=== PATIENT | male | born 1950 | race Hispanic/Latino ===

== ENCOUNTER 2019-12-07 17:48 | Inpatient (IN) | payer OTHER ==
[~2019-12-07] VITALS: Ht 160 cm; Wt 71.8 kg
[2019-12-07 18:03] LABS: BASOPHILS % (AUTO) 0.2 % (0.0-5.0); HEMATOCRIT 41.2 % (42-54); LYMPHOCYTES % (AUTO) 7.9 % (21.0-51.0); MEAN CORPUSCULAR HEMOGLOBIN 30.9 pg (27.0-33.0); MEAN CORPUSCULAR HGB CONC 35.4 g/dL (32.0-36.0); MEAN CORPUSCULAR VOLUME 87.3 fL (79-99); MONOCYTES % (AUTO) 10.7 % (3.0-13.0); NEUTROPHILS % (AUTO) 80.1 % (40.0-77.0); PLATELET COUNT (AUTO) 249 K/uL (130-400); RED BLOOD CELL COUNT(AUTO) 4.72 MIL/uL (4.50-6.20); RED CELL DISTRIBUTION WIDTH 13.4 % (11.0-15.5); WHITE BLOOD COUNT (AUTO) 9.7 K/uL (4.8-10.8)
[2019-12-07 18:03] LABS: ABG HCO3 18.3 mmol/L (21.0-28.0); ABG OXYGEN SATURATION 80.1 % (95.0-99.0); ABG PCO2 24 mmHg (35-48)
[2019-12-07 18:23] LABS: INR 0.92 (0.85-1.15); PARTIAL THROMBOPLASTIN TIME 29.6 SEC (26.3-35.5)
[2019-12-07] MEDS ORDERED: ACETAMINOPHEN EXTRA STRENGTH 500 MG TABLET ONE (18:24)
[2019-12-07 19:24] LABS: ALBUMIN 3.4 g/dL (3.5-5.0); BILIRUBIN,TOTAL 1.3 mg/dL (0.2-1.0); CREATININE 1.5 mg/dL (0.5-1.5); POTASSIUM 4.8 mmol/L (3.5-5.1); TOTAL PROTEIN, SERUM 8.2 g/dL (6.0-8.3)
[2019-12-07 19:28] LABS: TROPONIN I 1.5 ng/mL (0.00-0.06)
[2019-12-07] MEDS ORDERED: GUAIFENESIN-DM 200/20 MG 10 ML PO PRN (20:00)
[2019-12-07] MEDS: CEFTRIAXONE SODIUM 1 GM IVP SCH (20:00)
[2019-12-07] MEDS ORDERED: ONDANSETRON HCL 4 MG/2 ML VIAL IV PRN (20:00)
[2019-12-07] MEDS ORDERED: ACETAMINOPHEN 325 MG TAB PO PRN ×2 (20:00)
[2019-12-07] MEDS ORDERED: DOXYCYCLINE 100MG+NS 250ML IV SCH (20:00)
[2019-12-07] MEDS: ENOXAPARIN SODIUM 80 MG/0.8 ML SQ SCH (21:00)
[2019-12-07] MEDS ORDERED: DOXYCYCLINE HYCLATE 100 MG TABLET PO SCH (21:00)
[2019-12-07] MEDS ORDERED: DEXTROSE 50%-WATER 50 ML DISP.SYRIN IV PRN (21:15)
[2019-12-07] MEDS ORDERED: ERGOCALCIFEROL (VITAMIN D2) 50,000 UNIT CAPSULE PO ONE (21:15)
[2019-12-07] MEDS ORDERED: ASPIRIN 325MG EC TAB 325 MG TABLET.DR PO SCH (21:15)
[2019-12-07] MEDS ORDERED: GLUCAGON 1MG KIT 1 MG ML IM PRN (21:15)
[2019-12-07] MEDS ORDERED: METHYLPREDNISOLONE SOD SUCC 125MG/2ML VIAL IVP ONE (21:30)
[2019-12-07] MEDS ORDERED: ENOXAPARIN SODIUM 80 MG/0.8 ML SQ ONE (23:37)
[2019-12-07] MEDS ORDERED: ASPIRIN 325 MG TABLET ONE (23:38)
[2019-12-07] MEDS ORDERED: ERGOCALCIFEROL (VITAMIN D2) 50,000 UNIT CAPSULE ONE (23:38)
[2019-12-07] MEDS ORDERED: ASCORBIC ACID 500 MG TAB ONE (23:38)
[2019-12-07] MEDS ORDERED: ZINC SULFATE 220 CAPSULE ONE (23:38)
[2019-12-07] MEDS ORDERED: METHYLPREDNISOLONE SOD SUCC 125MG/2ML VIAL ONE (23:39)
[2019-12-07] MEDS ORDERED: CEFTRIAXONE SODIUM 1 GM ONE (23:39)
[2019-12-07] MEDS ORDERED: AZITHROMYCIN 500MG+NS 250ML 250 ML IV ONE (23:39)
[2019-12-07] MEDS ORDERED: DOXYCYCLINE 100MG+NS 250ML 250 ML IV ONE (23:44)
[2019-12-08] MEDS ORDERED: FAMOTIDINE/PF 20 MG/2 ML VIAL IV ONE ×2 (00:18→08:46)
[2019-12-08] MEDS ORDERED: ACETAMINOPHEN EXTRA STRENGTH 500 MG TABLET ONE (01:23)
[2019-12-08] MEDS ORDERED: ERGOCALCIFEROL (VITAMIN D2) 50,000 UNIT CAPSULE ONE (01:23)
[2019-12-08 03:29] LABS: TROPONIN I 4.03 ng/mL (0.00-0.06)
[2019-12-08 07:11] LABS: BASOPHILS % (AUTO) 0.2 % (0.0-5.0); HEMATOCRIT 37.3 % (42-54); LYMPHOCYTES % (AUTO) 6.2 % (21.0-51.0); MEAN CORPUSCULAR HGB CONC 35.1 g/dL (32.0-36.0); MEAN CORPUSCULAR VOLUME 88.2 fL (79-99); MONOCYTES % (AUTO) 4.1 % (3.0-13.0); NEUTROPHILS % (AUTO) 88.3 % (40.0-77.0); PLATELET COUNT (AUTO) 242 K/uL (130-400); RED BLOOD CELL COUNT(AUTO) 4.23 MIL/uL (4.50-6.20); RED CELL DISTRIBUTION WIDTH 13.6 % (11.0-15.5)
[2019-12-08] MEDS: INSULIN HUMULIN R 100 UNIT/ML 3ML SQ SCH ×4 (07:30→21:00)
[2019-12-08] MEDS: INSULIN GLARGINE 100 UNITS/ML 10 ML VIAL SQ SCH ×2 (07:30→21:00)
[2019-12-08 07:36] LABS: ALBUMIN 3.1 g/dL (3.5-5.0); BILIRUBIN,TOTAL 0.9 mg/dL (0.2-1.0); CREATININE 1.2 mg/dL (0.5-1.5); CRP QUANTITATIVE 114.7 mg/L (0.00-9.0); POTASSIUM 4.3 mmol/L (3.5-5.1); TOTAL PROTEIN, SERUM 7.3 g/dL (6.0-8.3)
[2019-12-08 07:40] LABS: TROPONIN I 4.54 ng/mL (0.00-0.06)
[2019-12-08] MEDS: CEFTRIAXONE SODIUM 1 GM IVP SCH ×2 (08:00→20:00)
[2019-12-08] MEDS ORDERED: ENOXAPARIN SODIUM 80 MG/0.8 ML SQ ONE ×2 (08:45→20:45)
[2019-12-08] MEDS ORDERED: ZINC SULFATE 220 CAPSULE ONE (08:45)
[2019-12-08] MEDS ORDERED: ASCORBIC ACID 500 MG TAB ONE (08:45)
[2019-12-08] MEDS ORDERED: ASPIRIN 81MG TAB.CHEW ONE ×2 (08:45→10:32)
[2019-12-08] MEDS ORDERED: CEFTRIAXONE SODIUM 1 GM ONE ×2 (08:46→20:46)
[2019-12-08] MEDS: ASCORBIC ACID 500 MG TAB PO SCH (09:00)
[2019-12-08] MEDS: METHYLPREDNISOLONE SOD SUCC 40MG/ML 1ML IVP SCH ×3 (09:00→21:00)
[2019-12-08] MEDS: FAMOTIDINE/PF 20 MG/2 ML VIAL IV SCH (09:00)
[2019-12-08] MEDS: ASPIRIN 81MG TAB.CHEW PO SCH (09:00)
[2019-12-08] MEDS ORDERED: ASPIRIN 81MG TAB.CHEW PO SCH (09:00)
[2019-12-08] MEDS: ENOXAPARIN SODIUM 80 MG/0.8 ML SQ SCH ×2 (09:00→21:00)
[2019-12-08] MEDS ORDERED: INSULIN HUMULIN R 100 UNIT/ML 3ML ONE ×3 (10:20→20:48)
[2019-12-08] MEDS ORDERED: METHYLPREDNISOLONE SOD SUCC 40MG/ML 1ML ONE ×2 (11:46→15:21)
[2019-12-08] MEDS ORDERED: DOXYCYCLINE HYCLATE 100 MG TABLET PO ONE (11:46)
[2019-12-08] MEDS: ZINC SULFATE 220 CAPSULE PO SCH (12:00)
--- NOTE | 2019-12-08 13:07 | NUR ---
SPOKE TO SPOUSE ON THE PHONE FOR DC PLANNING, STATES PATIENT IS ACTIVE, INDEPENDENT, NO DME, AND NO PCP, HAS A NEW PATIENT APPOINTMENT WITH DR. ROSA MONCADA MIRIAM, DC IS HOME NO ANSWERWIFE STATES UNABLE TO CALL PATIENT ON HIS PHONE [phone] CM CALL TO ER [phone] Addendum: 12/08/19 at 1313 by WILD SAN RN CM Amended: Links added.
[2019-12-08] MEDS ORDERED: METOPROLOL TARTRATE 50 MG TAB ONE ×2 (16:10→20:46)
[2019-12-08] MEDS ORDERED: FUROSEMIDE 10 MG/ML 4ML VIAL IV SCH (16:30)
[2019-12-08] MEDS ORDERED: FUROSEMIDE 10 MG/ML 4ML VIAL ONE (17:32)
[2019-12-08] MEDS: METHYLPREDNISOLONE SOD SUCC 125MG/2ML VIAL IVP SCH (18:00)
[2019-12-08 18:55] LABS: APPEARANCE,URINE Clear (CLEAR); BILIRUBIN,URINE Negative (NEGATIVE); COLOR,URINE Yellow (YELLOW); GLUCOSE, URINE (UA) TRACE mg/dL (NEGATIVE); KETONES,URINE Negative (NEGATIVE); LEUKOCYTE ESTERASE ,URINE Negative (NEGATIVE); NITRATE,URINE Negative (NEGATIVE); OCCULT BLOOD,URINE Negative (NEGATIVE); PROTEIN,URINE POS 1+ mg/dL (NEGATIVE)
[2019-12-08 19:04] LABS: BACTERIA,URINE Rare /HPF (None Seen); RBC,URINE 0-1 /HPF (0-1); SQUAMOUS EPITHELIAL CELL,UR Few /HPF (0-2); WBC,URINE 0-1 /HPF (0-1)
[2019-12-09 05:36] LABS: BASOPHILS % (AUTO) 0.1 % (0.0-5.0); HEMATOCRIT 35.7 % (42-54); MEAN CORPUSCULAR HEMOGLOBIN 30.9 pg (27.0-33.0); MEAN CORPUSCULAR VOLUME 88.1 fL (79-99); MONOCYTES % (AUTO) 6.4 % (3.0-13.0); NEUTROPHILS % (AUTO) 87.2 % (40.0-77.0); PLATELET COUNT (AUTO) 301 K/uL (130-400); RED BLOOD CELL COUNT(AUTO) 4.05 MIL/uL (4.50-6.20); RED CELL DISTRIBUTION WIDTH 13.5 % (11.0-15.5); WHITE BLOOD COUNT (AUTO) 15.1 K/uL (4.8-10.8)
[2019-12-09 05:52] LABS: ALBUMIN 2.8 g/dL (3.5-5.0)
[2019-12-09 05:54] LABS: BILIRUBIN,TOTAL 0.8 mg/dL (0.2-1.0); CREATININE 1.2 mg/dL (0.5-1.5); CRP QUANTITATIVE 78.6 mg/L (0.00-9.0); POTASSIUM 3.9 mmol/L (3.5-5.1); TOTAL PROTEIN, SERUM 7.1 g/dL (6.0-8.3)
[2019-12-09] MEDS: METHYLPREDNISOLONE SOD SUCC 125MG/2ML VIAL IVP SCH ×4 (06:00→18:00)
[2019-12-09] MEDS: INSULIN HUMULIN R 100 UNIT/ML 3ML SQ SCH ×4 (07:30→21:00)
[2019-12-09] MEDS: INSULIN GLARGINE 100 UNITS/ML 10 ML VIAL SQ SCH ×2 (07:30→21:00)
[2019-12-09] MEDS ORDERED: ENOXAPARIN SODIUM 80 MG/0.8 ML SQ ONE ×2 (07:53→21:18)
[2019-12-09] MEDS ORDERED: ASPIRIN 81MG TAB.CHEW ONE (07:54)
[2019-12-09] MEDS ORDERED: ASCORBIC ACID 500 MG TAB ONE (07:54)
[2019-12-09] MEDS ORDERED: METHYLPREDNISOLONE SOD SUCC 40MG/ML 1ML ONE (07:54)
[2019-12-09] MEDS ORDERED: ZINC SULFATE 220 CAPSULE ONE (07:54)
[2019-12-09] MEDS ORDERED: METOPROLOL TARTRATE 50 MG TAB ONE (07:55)
[2019-12-09] MEDS ORDERED: CEFTRIAXONE SODIUM 1 GM ONE ×2 (07:55→21:25)
[2019-12-09] MEDS ORDERED: FAMOTIDINE/PF 20 MG/2 ML VIAL IV ONE (07:56)
[2019-12-09] MEDS: CEFTRIAXONE SODIUM 1 GM IVP SCH ×2 (08:00→20:00)
[2019-12-09] MEDS: ASPIRIN 81MG TAB.CHEW PO SCH (09:00)
[2019-12-09] MEDS: ENOXAPARIN SODIUM 80 MG/0.8 ML SQ SCH ×2 (09:00→21:00)
[2019-12-09] MEDS: METHYLPREDNISOLONE SOD SUCC 40MG/ML 1ML IVP SCH ×3 (09:00→21:00)
[2019-12-09] MEDS: FAMOTIDINE/PF 20 MG/2 ML VIAL IV SCH (09:00)
[2019-12-09] MEDS: ASCORBIC ACID 500 MG TAB PO SCH (09:00)
[2019-12-09] MEDS ORDERED: FUROSEMIDE 10 MG/ML 4ML VIAL IV SCH (09:30)
[2019-12-09] MEDS: ZINC SULFATE 220 CAPSULE PO SCH (12:00)
[2019-12-09] MEDS ORDERED: FUROSEMIDE 10 MG/ML 4ML VIAL ONE (13:03)
[2019-12-09] MEDS ORDERED: INSULIN HUMULIN R 100 UNIT/ML 3ML ONE ×2 (15:09→17:46)
[2019-12-09 19:35] LABS: BASOPHILS % (AUTO) 0.1 % (0.0-5.0); HEMATOCRIT 34.3 % (42-54); LYMPHOCYTES % (AUTO) 3.4 % (21.0-51.0); MEAN CORPUSCULAR HEMOGLOBIN 31.1 pg (27.0-33.0); MEAN CORPUSCULAR HGB CONC 35.3 g/dL (32.0-36.0); MEAN CORPUSCULAR VOLUME 88.2 fL (79-99); MONOCYTES % (AUTO) 4.6 % (3.0-13.0); NEUTROPHILS % (AUTO) 90.8 % (40.0-77.0); NUCLEATED RED BLOOD CELLS 0.1 % (0.0-0.19); PLATELET COUNT (AUTO) 329 K/uL (130-400); RED BLOOD CELL COUNT(AUTO) 3.89 MIL/uL (4.50-6.20); RED CELL DISTRIBUTION WIDTH 13.6 % (11.0-15.5); WHITE BLOOD COUNT (AUTO) 14.8 K/uL (4.8-10.8)
[2019-12-09] MEDS: FUROSEMIDE 10 MG/ML 2ML VIAL IV SCH (20:00)
[2019-12-09] MEDS ORDERED: DOXYCYCLINE 100MG+NS 250ML 250 ML IV ONE (20:35)
[2019-12-09] MEDS ORDERED: FUROSEMIDE 10 MG/ML 2ML VIAL ONE (21:19)
[2019-12-09] MEDS ORDERED: METHYLPREDNISOLONE SOD SUCC 125MG/2ML VIAL ONE (21:19)
[2019-12-10 01:25] VITALS: BP 157/84
[2019-12-10] MEDS: METHYLPREDNISOLONE SOD SUCC 125MG/2ML VIAL IVP SCH ×4 (01:29→17:41)
[2019-12-10 03:34] VITALS: BP 154/76
[2019-12-10] MEDS: FUROSEMIDE 10 MG/ML 2ML VIAL IV SCH ×3 (04:59→22:10)
[2019-12-10] MEDS: INSULIN HUMULIN R 100 UNIT/ML 3ML SQ SCH ×4 (05:53→22:09)
[2019-12-10] MEDS: INSULIN GLARGINE 100 UNITS/ML 10 ML VIAL SQ SCH ×2 (05:54→22:09)
[2019-12-10 08:00] VITALS: BP 148/78
[2019-12-10 08:07] LABS: BASOPHILS % (AUTO) 0.1 % (0.0-5.0); HEMATOCRIT 33.5 % (42-54); LYMPHOCYTES % (AUTO) 4.7 % (21.0-51.0); MEAN CORPUSCULAR HEMOGLOBIN 30.6 pg (27.0-33.0); MEAN CORPUSCULAR HGB CONC 34.6 g/dL (32.0-36.0); MEAN CORPUSCULAR VOLUME 88.4 fL (79-99); MONOCYTES % (AUTO) 4.3 % (3.0-13.0); NEUTROPHILS % (AUTO) 89.4 % (40.0-77.0); NUCLEATED RED BLOOD CELLS 0.1 % (0.0-0.19); PLATELET COUNT (AUTO) 327 K/uL (130-400); RED BLOOD CELL COUNT(AUTO) 3.79 MIL/uL (4.50-6.20); RED CELL DISTRIBUTION WIDTH 13.5 % (11.0-15.5); WHITE BLOOD COUNT (AUTO) 13.6 K/uL (4.8-10.8)
[2019-12-10 08:29] LABS: ALBUMIN 2.8 g/dL (3.5-5.0); BILIRUBIN,TOTAL 0.9 mg/dL (0.2-1.0); CREATININE 1.3 mg/dL (0.5-1.5); CRP QUANTITATIVE 34.6 mg/L (0.00-9.0); POTASSIUM 3.7 mmol/L (3.5-5.1); TOTAL PROTEIN, SERUM 6.7 g/dL (6.0-8.3)
[2019-12-10] MEDS ORDERED: FUROSEMIDE 10 MG/ML 4ML VIAL IV SCH (09:45)
[2019-12-10] MEDS ORDERED: PHARMACY COMMUNICATION MISC SCH (10:15)
[2019-12-10] MEDS ORDERED: FAMOTIDINE 20MG TAB 20 MG TAB ONE (10:56)
[2019-12-10] MEDS: ENOXAPARIN SODIUM 80 MG/0.8 ML SQ SCH ×2 (11:13→22:11)
[2019-12-10] MEDS: FAMOTIDINE 20MG TAB 20 MG TAB PO SCH ×2 (11:14→22:10)
[2019-12-10] MEDS: ASPIRIN 81MG TAB.CHEW PO SCH (11:17)
[2019-12-10] MEDS: CEFTRIAXONE SODIUM 1 GM IVP SCH ×2 (11:17→22:11)
[2019-12-10] MEDS: ZINC SULFATE 220 CAPSULE PO SCH (11:17)
[2019-12-10] MEDS: ASCORBIC ACID 500 MG TAB PO SCH (11:17)
[2019-12-10] MEDS: METOPROLOL TARTRATE 25 MG TAB PO SCH ×2 (11:18→22:12)
[2019-12-10 13:32] VITALS: BP 145/79
[2019-12-10] MEDS ORDERED: REMDESIVIR (INVESTIGATIONAL) 200 MG/250 ML NS IV SCH (14:00)
[2019-12-10 18:18] VITALS: BP 157/76
[2019-12-10 20:32] VITALS: BP 149/74
[2019-12-11] MEDS: METHYLPREDNISOLONE SOD SUCC 125MG/2ML VIAL IVP SCH ×4 (00:06→17:51)
[2019-12-11 00:32] VITALS: BP 139/69
[2019-12-11] MEDS ORDERED: TEMAZEPAM 7.5 MG CAPSULE PO ONE ×2 (01:00→01:06)
[2019-12-11 04:32] VITALS: BP 133/72
[2019-12-11] MEDS: FUROSEMIDE 10 MG/ML 2ML VIAL IV SCH ×3 (04:52→21:16)
[2019-12-11 05:54] LABS: BASOPHILS % (AUTO) 0.2 % (0.0-5.0); LYMPHOCYTES % (AUTO) 5.1 % (21.0-51.0); MEAN CORPUSCULAR HEMOGLOBIN 30.4 pg (27.0-33.0); MEAN CORPUSCULAR HGB CONC 34.1 g/dL (32.0-36.0); MONOCYTES % (AUTO) 5.1 % (3.0-13.0); NEUTROPHILS % (AUTO) 88.2 % (40.0-77.0); PLATELET COUNT (AUTO) 364 K/uL (130-400); RED BLOOD CELL COUNT(AUTO) 3.82 MIL/uL (4.50-6.20); RED CELL DISTRIBUTION WIDTH 13.5 % (11.0-15.5)
[2019-12-11] MEDS: INSULIN HUMULIN R 100 UNIT/ML 3ML SQ SCH ×4 (06:32→21:00)
[2019-12-11] MEDS: INSULIN GLARGINE 100 UNITS/ML 10 ML VIAL SQ SCH ×2 (06:33→21:14)
[2019-12-11 06:42] LABS: ALBUMIN 2.7 g/dL (3.5-5.0); BILIRUBIN,TOTAL 0.8 mg/dL (0.2-1.0); CREATININE 1.2 mg/dL (0.5-1.5); CRP QUANTITATIVE 19.9 mg/L (0.00-9.0); POTASSIUM 3.5 mmol/L (3.5-5.1); TOTAL PROTEIN, SERUM 6.7 g/dL (6.0-8.3)
[2019-12-11] MEDS: CEFTRIAXONE SODIUM 1 GM IVP SCH ×2 (08:37→21:16)
[2019-12-11] MEDS: FAMOTIDINE 20MG TAB 20 MG TAB PO SCH ×2 (08:38→21:16)
[2019-12-11] MEDS: ASCORBIC ACID 500 MG TAB PO SCH (08:38)
[2019-12-11] MEDS: METOPROLOL TARTRATE 25 MG TAB PO SCH ×2 (08:38→21:16)
[2019-12-11] MEDS: ASPIRIN 81MG TAB.CHEW PO SCH (08:38)
[2019-12-11] MEDS: ENOXAPARIN SODIUM 80 MG/0.8 ML SQ SCH ×2 (08:41→21:18)
[2019-12-11] MEDS: ZINC SULFATE 220 CAPSULE PO SCH (08:42)
[2019-12-11 09:37] VITALS: BP 147/82
[2019-12-11] MEDS ORDERED: REMDESIVIR (INVESTIGATIONAL) 100 MG in SODIUM CHLORIDE 0.9% 250 ML IV SCH (09:45)
[2019-12-11 13:43] VITALS: BP 15/92
[2019-12-11] MEDS: REMDESIVIR (INVESTIGATIONAL) 100 MG/250ML NS IV SCH (14:06)
[2019-12-11] MEDS ORDERED: COMPOUND IV REFRIGERATED 1 EACH IVSOLN MISC PRN (14:15)
[2019-12-11 18:19] VITALS: BP 151/60
[2019-12-11 20:00] VITALS: BP 147/80
[2019-12-12] VITALS: BP 144/79
[2019-12-12] MEDS: METHYLPREDNISOLONE SOD SUCC 125MG/2ML VIAL IVP SCH ×5 (00:23→23:36)
[2019-12-12 04:00] VITALS: BP 153/89
[2019-12-12] MEDS: FUROSEMIDE 10 MG/ML 2ML VIAL IV SCH ×3 (04:00→21:28)
[2019-12-12] MEDS: INSULIN GLARGINE 100 UNITS/ML 10 ML VIAL SQ SCH ×2 (06:08→21:22)
[2019-12-12] MEDS: INSULIN HUMULIN R 100 UNIT/ML 3ML SQ SCH ×4 (06:08→21:23)
[2019-12-12 06:44] LABS: BASOPHILS % (AUTO) 0.2 % (0.0-5.0); MEAN CORPUSCULAR HGB CONC 33.5 g/dL (32.0-36.0); MEAN CORPUSCULAR VOLUME 89.6 fL (79-99); MONOCYTES % (AUTO) 5.9 % (3.0-13.0); NEUTROPHILS % (AUTO) 88.1 % (40.0-77.0); PLATELET COUNT (AUTO) 393 K/uL (130-400); RED BLOOD CELL COUNT(AUTO) 4.13 MIL/uL (4.50-6.20); RED CELL DISTRIBUTION WIDTH 13.3 % (11.0-15.5); WHITE BLOOD COUNT (AUTO) 16.4 K/uL (4.8-10.8)
[2019-12-12 07:24] LABS: ALBUMIN 2.7 g/dL (3.5-5.0); CRP QUANTITATIVE 19.9 mg/L (0.00-9.0); POTASSIUM 3.1 mmol/L (3.5-5.1); TOTAL PROTEIN, SERUM 6.6 g/dL (6.0-8.3)
[2019-12-12] MEDS: CEFTRIAXONE SODIUM 1 GM IVP SCH ×2 (08:03→21:26)
[2019-12-12] MEDS: ASCORBIC ACID 500 MG TAB PO SCH (08:36)
[2019-12-12] MEDS: ASPIRIN 81MG TAB.CHEW PO SCH (08:36)
[2019-12-12] MEDS: METOPROLOL TARTRATE 25 MG TAB PO SCH ×2 (08:37→21:27)
[2019-12-12] MEDS: ENOXAPARIN SODIUM 80 MG/0.8 ML SQ SCH ×2 (08:37→21:28)
[2019-12-12] MEDS: FAMOTIDINE 20MG TAB 20 MG TAB PO SCH ×2 (09:00→21:00)
--- NOTE | 2019-12-12 09:45 | NUR ---
DR. ANGEL SPOKE TO VIA TELEPHONE. STATES NO INTERVENTIONS BY CARDIOLOGY AT THIS TIME, MD IS SIGNING OFF OF CASE.
[2019-12-12 10:15] VITALS: BP 137/80
[2019-12-12 12:00] VITALS: BP 159/73
[2019-12-12] MEDS: ZINC SULFATE 220 CAPSULE PO SCH (12:13)
[2019-12-12] MEDS: REMDESIVIR (INVESTIGATIONAL) 100 MG/250ML NS IV SCH (14:07)
[2019-12-12 19:01] VITALS: BP 166/90
[2019-12-12 20:00] VITALS: BP 159/91
[2019-12-13 00:18] VITALS: BP 160/89
[2019-12-13 03:23] VITALS: BP 141/81
[2019-12-13] MEDS: INSULIN HUMULIN R 100 UNIT/ML 3ML SQ SCH ×4 (06:05→20:32)
[2019-12-13] MEDS: INSULIN GLARGINE 100 UNITS/ML 10 ML VIAL SQ SCH ×2 (06:06→20:32)
[2019-12-13 06:27] LABS: BASOPHILS % (AUTO) 0.2 % (0.0-5.0); HEMATOCRIT 37.9 % (42-54); LYMPHOCYTES % (AUTO) 2.8 % (21.0-51.0); MEAN CORPUSCULAR HEMOGLOBIN 30.8 pg (27.0-33.0); MEAN CORPUSCULAR HGB CONC 34.6 g/dL (32.0-36.0); MONOCYTES % (AUTO) 5.3 % (3.0-13.0); NEUTROPHILS % (AUTO) 89.9 % (40.0-77.0); PLATELET COUNT (AUTO) 400 K/uL (130-400); RED BLOOD CELL COUNT(AUTO) 4.26 MIL/uL (4.50-6.20); RED CELL DISTRIBUTION WIDTH 13.2 % (11.0-15.5); WHITE BLOOD COUNT (AUTO) 14.5 K/uL (4.8-10.8)
[2019-12-13 06:55] LABS: ALBUMIN 2.5 g/dL (3.5-5.0); CRP QUANTITATIVE 24.7 mg/L (0.00-9.0); POTASSIUM 3.1 mmol/L (3.5-5.1); TOTAL PROTEIN, SERUM 6.9 g/dL (6.0-8.3)
[2019-12-13 08:36] VITALS: BP 141/79
[2019-12-13] MEDS: CEFTRIAXONE SODIUM 1 GM IVP SCH ×2 (08:41→20:29)
[2019-12-13] MEDS: METHYLPREDNISOLONE SOD SUCC 125MG/2ML VIAL IVP SCH ×2 (08:41→17:14)
[2019-12-13] MEDS: ASCORBIC ACID 500 MG TAB PO SCH (08:42)
[2019-12-13] MEDS: FUROSEMIDE 10 MG/ML 2ML VIAL IV SCH ×2 (08:42→20:30)
[2019-12-13] MEDS: ASPIRIN 81MG TAB.CHEW PO SCH (08:42)
[2019-12-13] MEDS: ENOXAPARIN SODIUM 80 MG/0.8 ML SQ SCH ×2 (08:43→20:33)
[2019-12-13] MEDS: METOPROLOL TARTRATE 25 MG TAB PO SCH ×2 (08:43→20:30)
[2019-12-13] MEDS: FAMOTIDINE 20MG TAB 20 MG TAB PO SCH ×2 (09:00→20:28)
[2019-12-13 11:10] VITALS: BP 160/86
[2019-12-13] MEDS: ZINC SULFATE 220 CAPSULE PO SCH (15:10)
[2019-12-13] MEDS: REMDESIVIR (INVESTIGATIONAL) 100 MG/250ML NS IV SCH (15:47)
[2019-12-13] MEDS ORDERED: POTASSIUM CHLORIDE 20MEQ/100ML 100 ML IV PRN ×2 (16:45)
[2019-12-13] MEDS ORDERED: POTASSIUM CHLORIDE 10% ELIXIR 20 MEQ/15 ML UDCUP PO PRN (16:45)
[2019-12-13 16:55] VITALS: BP 148/86
[2019-12-13 19:30] VITALS: BP 150/81
[2019-12-13] MEDS: POTASSIUM CHLORIDE 20 MEQ ERTAB PO PRN (20:40)
[2019-12-14] VITALS: BP 138/97
[2019-12-14] MEDS: METHYLPREDNISOLONE SOD SUCC 125MG/2ML VIAL IVP SCH ×4 (01:08→23:53)
[2019-12-14 04:00] VITALS: BP 147/77
[2019-12-14 05:32] LABS: BASOPHILS % (AUTO) 0.2 % (0.0-5.0); HEMATOCRIT 39.5 % (42-54); LYMPHOCYTES % (AUTO) 1.1 % (21.0-51.0); MEAN CORPUSCULAR HEMOGLOBIN 30.5 pg (27.0-33.0); MEAN CORPUSCULAR HGB CONC 34.2 g/dL (32.0-36.0); MEAN CORPUSCULAR VOLUME 89.2 fL (79-99); MONOCYTES % (AUTO) 3.2 % (3.0-13.0); NEUTROPHILS % (AUTO) 93.8 % (40.0-77.0); PLATELET COUNT (AUTO) 419 K/uL (130-400); RED BLOOD CELL COUNT(AUTO) 4.43 MIL/uL (4.50-6.20); RED CELL DISTRIBUTION WIDTH 13.2 % (11.0-15.5); WHITE BLOOD COUNT (AUTO) 15.1 K/uL (4.8-10.8)
[2019-12-14] MEDS: INSULIN HUMULIN R 100 UNIT/ML 3ML SQ SCH ×4 (05:50→21:22)
[2019-12-14] MEDS: INSULIN GLARGINE 100 UNITS/ML 10 ML VIAL SQ SCH ×2 (05:51→21:22)
[2019-12-14 06:01] LABS: ALBUMIN 2.5 g/dL (3.5-5.0); BILIRUBIN,TOTAL 1.4 mg/dL (0.2-1.0); CREATININE 0.9 mg/dL (0.5-1.5); CRP QUANTITATIVE 28.1 mg/L (0.00-9.0)
[2019-12-14] MEDS: POTASSIUM CHLORIDE 20 MEQ ERTAB PO PRN ×3 (06:03→14:29)
[2019-12-14 08:00] VITALS: BP 146/77
[2019-12-14] MEDS: FAMOTIDINE 20MG TAB 20 MG TAB PO SCH ×2 (09:00→20:41)
[2019-12-14] MEDS: ASCORBIC ACID 500 MG TAB PO SCH (09:00)
[2019-12-14] MEDS: CEFTRIAXONE SODIUM 1 GM IVP SCH (09:05)
[2019-12-14] MEDS ORDERED: LIDOCAINE HCL-MPF 1% 2ML VIAL IV PRN (09:45)
[2019-12-14] MEDS: ASPIRIN 81MG TAB.CHEW PO SCH (09:45)
[2019-12-14] MEDS: FUROSEMIDE 10 MG/ML 2ML VIAL IV SCH (09:45)
[2019-12-14] MEDS: ENOXAPARIN SODIUM 80 MG/0.8 ML SQ SCH ×2 (09:46→20:42)
[2019-12-14] MEDS: METOPROLOL TARTRATE 25 MG TAB PO SCH ×2 (09:46→20:41)
[2019-12-14 11:00] VITALS: BP 145/72
[2019-12-14] MEDS: REMDESIVIR (INVESTIGATIONAL) 100 MG/250ML NS IV SCH (14:29)
--- NOTE | 2019-12-14 16:00 | NUR ---
PATIENT SOB AND LOW O2 SAT PATIENT REPORTS FEELING SHORT OF BREATH. O2 SAT RANGING 82-88% WHILE ON NONREBREATHER MASK AT 100%. REPOSITIONED PATIENT WITH HEAD OF BED ELEVATED AND PATIENT REPORTS TROUBLE BREATHING. O2 SAT MAINTAINING IN 80'S RANGE WITH NONREBREATHER MASK AT 100%. CALLED DR. SOLORIO TO REPORT PATIENT SYMPTOMS, NOT TOLERATING PRONE POSITIONING, AND LOW OXYGEN SAT READINGS. MD ORDERED TO PLACE PATIENT ON HIFLOW O2 PER NASAL CANNULA.
--- NOTE | 2019-12-14 16:10 | NUR ---
IMPROVEMENT IN SYMPTOMS REPOSITIONED PATIENT ON RIGHT SIDE, HOB ELEVATED. NONREBREATHER MASK AT 100%, O2 SAT 90-92%. PATIENT REPORTS FEELING A LITTLE BETTER. RESPIRATORY THERAPIST RUTH INFORMED ME THAT THERE ARE NO HIGH FLOW O2 CANNULAS AVAILABLE IN HOSPITAL AT THIS TIME. PATIENT 02 SAT SLIGHTLY IMPROVING TO 93-94% AFTER 10 MINUTES OF REPOSITIONING ON RIGHT SIDE. CALLED DR. SOLORIO TO REPORT NO HIGH FLOW O2 CANNULAS ARE AVAILABLE BUT PATIENT EXPERIENCING IMPROVEMENT IN SYMPTOMS WITH CURRENT INTERVENTIONS. DR. SOLORIO REPLIED TO MAINTAIN CURRENT OXYGENATION AND CONTINUE TO ENCOURAGE PRONE POSITIONING WHEN PATIENT IS ABLE.
[2019-12-14] MEDS: ZINC SULFATE 220 CAPSULE PO SCH (17:34)
[2019-12-14 22:17] VITALS: BP 157/80
[2019-12-15 00:01] VITALS: BP 153/86
[2019-12-15] MEDS: INSULIN HUMULIN R 100 UNIT/ML 3ML SQ SCH ×4 (05:26→20:22)
[2019-12-15] MEDS: INSULIN GLARGINE 100 UNITS/ML 10 ML VIAL SQ SCH ×2 (05:27→20:23)
[2019-12-15 05:45] VITALS: BP 159/76
[2019-12-15 06:28] LABS: BASOPHILS % (AUTO) 0.2 % (0.0-5.0); HEMATOCRIT 40.1 % (42-54); LYMPHOCYTES % (AUTO) 1.7 % (21.0-51.0); MEAN CORPUSCULAR HEMOGLOBIN 30.8 pg (27.0-33.0); MEAN CORPUSCULAR HGB CONC 33.4 g/dL (32.0-36.0); MEAN CORPUSCULAR VOLUME 92.2 fL (79-99); MONOCYTES % (AUTO) 4.6 % (3.0-13.0); NEUTROPHILS % (AUTO) 91.9 % (40.0-77.0); PLATELET COUNT (AUTO) 436 K/uL (130-400); RED BLOOD CELL COUNT(AUTO) 4.35 MIL/uL (4.50-6.20); RED CELL DISTRIBUTION WIDTH 13.1 % (11.0-15.5); WHITE BLOOD COUNT (AUTO) 11.9 K/uL (4.8-10.8)
[2019-12-15 06:48] LABS: ALANINE AMINOTRANSFERASE 26 U/L (12-78); ALBUMIN 2.4 g/dL (3.5-5.0); ASPARTATE AMINOTRANSFERASE 36 U/L (10-37); BILIRUBIN,TOTAL 1.6 mg/dL (0.2-1.0); CARBON DIOXIDE 32 mmol/L (21-32); CHLORIDE 101 mmol/L (101-111); CREATININE 0.9 mg/dL (0.5-1.5); GLOMERULAR FILTR. RATE CALC 89 mL/min (>60); GLUCOSE,RANDOM 210 mg/dL (70-105); LACTATE DEHYDROGENASE 772 U/L (81-234); POTASSIUM 3.6 mmol/L (3.5-5.1); SODIUM SERUM 139 mmol/L (136-145); TOTAL PROTEIN, SERUM 6.7 g/dL (6.0-8.3); UREA NITROGEN, BLOOD 41 mg/dL (7-18)
--- NOTE | 2019-12-15 08:00 | NUR ---
PT SLEEPING NOTED HIS 100 % NRB , PARTIAL OFF, NOTED O2 Sat NOTED AT 50% RR OF 18, REPOSITION , HOB UP PLACED BACK HIS MASK OVER HISS FACE ,WITH SOME DEEP BREATH . O2 SAT COMING UP TO 92% REVIEW EDUCATION ON HIS RESP EQUIP AND MASK . OFF CL LIQ CALL LIGHT I N REACH.. PT CLOSE TO NURSE,S STATION, REVIEW CALL LIGHT AGAIN CALL LIGHT .
[2019-12-15 08:45] VITALS: BP 154/65
[2019-12-15] MEDS: METOPROLOL TARTRATE 25 MG TAB PO SCH ×2 (08:55→20:22)
[2019-12-15] MEDS: ASCORBIC ACID 500 MG TAB PO SCH (08:56)
[2019-12-15] MEDS: ASPIRIN 81MG TAB.CHEW PO SCH (08:56)
[2019-12-15] MEDS: METHYLPREDNISOLONE SOD SUCC 125MG/2ML VIAL IVP SCH ×3 (08:56→20:23)
[2019-12-15] MEDS: ENOXAPARIN SODIUM 80 MG/0.8 ML SQ SCH ×2 (08:57→20:23)
[2019-12-15] MEDS: FAMOTIDINE 20MG TAB 20 MG TAB PO SCH ×2 (08:57→20:22)
[2019-12-15 11:00] VITALS: BP 143/69
[2019-12-15] MEDS: ZINC SULFATE 220 CAPSULE PO SCH (12:27)
--- NOTE | 2019-12-15 13:30 | NUR ---
DR. CAROLYNN BAZAN HERE UPDATE OF PT .SOB AND O2SAT THIS AM. REPOSITION TO HIS RT SIDE, PT IS NOT ABLE TO SUPPORT PRONE POSITION . AT THIS TIME, HOB UP CONT .ON 100% NRB . CALL LIGHT IN REACH..
[2019-12-15 16:00] VITALS: BP 141/81
--- NOTE | 2019-12-15 18:30 | NUR ---
CALLED BLOOD BANK FOR THE THAWING OF THE PLASMA
--- NOTE | 2019-12-15 18:50 | NUR ---
DR. OKEEFE HERE UPDATE OF PT RESP EVENT. AND PENDING ICU BED ,AND HIGH FLOW ALSO PER NC. PLUS 100% NRB TRY TO PLACE PT ON PRONE POSITION WITH HELP AND PT WAS NOT ABLE TO TOLERATE POSITION . PLACE ON HIS RIGHT SIDE, AND HOB UP UP O2 Sat of 88% DR. OKEEFE AWARE OF HIS STATUS,
--- NOTE | 2019-12-15 18:50 | NUR ---
RESP STAFF , AT THE BEDSIDE, DR. OKEEFE TO PLACE PT ON NC ALSO PLUS THE 100% NRB .
[2019-12-15 20:28] VITALS: BP 154/77
[2019-12-16 00:26] VITALS: BP 126/60
[2019-12-16 04:28] VITALS: BP 120/62
[2019-12-16 05:12] LABS: BASOPHILS % (AUTO) 0.2 % (0.0-5.0); LYMPHOCYTES % (AUTO) 1.5 % (21.0-51.0); MEAN CORPUSCULAR HEMOGLOBIN 30.3 pg (27.0-33.0); MEAN CORPUSCULAR HGB CONC 33.1 g/dL (32.0-36.0); MEAN CORPUSCULAR VOLUME 91.6 fL (79-99); MONOCYTES % (AUTO) 2.8 % (3.0-13.0); NEUTROPHILS % (AUTO) 94.1 % (40.0-77.0); PLATELET COUNT (AUTO) 316 K/uL (130-400); RED BLOOD CELL COUNT(AUTO) 3.93 MIL/uL (4.50-6.20); RED CELL DISTRIBUTION WIDTH 13.1 % (11.0-15.5); WHITE BLOOD COUNT (AUTO) 11.9 K/uL (4.8-10.8)
[2019-12-16 05:25] LABS: ALBUMIN 2.4 g/dL (3.5-5.0); BILIRUBIN,TOTAL 2.3 mg/dL (0.2-1.0); CREATININE 1.1 mg/dL (0.5-1.5); CRP QUANTITATIVE 65.9 mg/L (0.00-9.0); TOTAL PROTEIN, SERUM 6.4 g/dL (6.0-8.3)
[2019-12-16] MEDS: INSULIN GLARGINE 100 UNITS/ML 10 ML VIAL SQ SCH ×2 (06:16→21:33)
[2019-12-16] MEDS: INSULIN HUMULIN R 100 UNIT/ML 3ML SQ SCH ×4 (06:16→21:32)
[2019-12-16 08:00] VITALS: BP 148/76
[2019-12-16] MEDS: FAMOTIDINE 20MG TAB 20 MG TAB PO SCH ×2 (09:00→21:00)
[2019-12-16] MEDS: CEFEPIME HCL 2 GM VIAL IVP SCH ×2 (10:18→21:30)
[2019-12-16] MEDS: ENOXAPARIN SODIUM 80 MG/0.8 ML SQ SCH ×2 (10:19→21:31)
[2019-12-16] MEDS: METHYLPREDNISOLONE SOD SUCC 125MG/2ML VIAL IVP SCH ×2 (10:20→16:47)
[2019-12-16] MEDS: ASPIRIN 81MG TAB.CHEW PO SCH (10:21)
[2019-12-16] MEDS: METOPROLOL TARTRATE 25 MG TAB PO SCH ×2 (10:21→21:00)
[2019-12-16] MEDS: ASCORBIC ACID 500 MG TAB PO SCH (10:21)
[2019-12-16] MEDS: DOXYCYCLINE HYCLATE 100 MG TABLET PO SCH ×2 (10:22→21:31)
[2019-12-16 11:00] VITALS: BP 137/79
[2019-12-16] MEDS: ZINC SULFATE 220 CAPSULE PO SCH (11:30)
--- NOTE | 2019-12-16 12:04 | NUR ---
RDSCREEN - LOS X 9, CLEAR LIQUID DIET X 9 DAYS Pt positive for COVID-19. Clear Liquid diet order x 9 days. Increased malnutrition risk. Poor PO intake per RN, possible swallow difficulty. WBC 11.9, BG 245, LDH 707, T. bili 2.3, AST 45, Alb 2.4. S/p Plasma Tx. Recommend SEAMLESS TUBE ROLLER/Swallow Study evaluation Recommend Adv diet as tolerated to 60gm CCD, when medically feasible Recommend 60mL ProMod QD when medically feasible. RD to continue to monitor. Please notify as additional nutrition concerns arise. Thank you.
--- NOTE | 2019-12-16 13:15 | NUR ---
FAMILY NOTIFICATION AND UPDATE SPOKE TO MIRANDA BIANCHI. GIVEN PT STATUS UPDATE AND PLAN OF CARE . ALL QUESTIONS ANSWERED. GIVEN PASSWORD FOR CALLS
[2019-12-16 16:00] VITALS: BP 124/87
--- NOTE | 2019-12-16 16:08 | NUR ---
Family notification Addendum for 12/15/2019; spoke to Sammie Cazares and gave her an update regarding pt's condition. All questions were answered and concerns addressed. Verbalized understanding and was very appreciative of call.
[2019-12-16 22:57] VITALS: BP 151/80
[2019-12-17] MEDS: METHYLPREDNISOLONE SOD SUCC 125MG/2ML VIAL IVP SCH ×3 (00:37→17:16)
[2019-12-17 00:58] VITALS: BP 143/74
[2019-12-17] MEDS: INSULIN HUMULIN R 100 UNIT/ML 3ML SQ SCH ×4 (05:29→21:02)
[2019-12-17] MEDS: INSULIN GLARGINE 100 UNITS/ML 10 ML VIAL SQ SCH ×2 (05:30→21:04)
[2019-12-17 05:46] VITALS: BP 140/62
[2019-12-17 07:26] LABS: CRP QUANTITATIVE 79.8 mg/L (0.00-9.0); POTASSIUM 3.7 mmol/L (3.5-5.1)
[2019-12-17 08:00] VITALS: BP 151/70
[2019-12-17] MEDS: CEFEPIME HCL 2 GM VIAL IVP SCH ×2 (08:47→20:05)
[2019-12-17] MEDS: FAMOTIDINE 20MG TAB 20 MG TAB PO SCH ×2 (08:48→20:06)
[2019-12-17] MEDS: ASPIRIN 81MG TAB.CHEW PO SCH (08:48)
[2019-12-17] MEDS: ASCORBIC ACID 500 MG TAB PO SCH (08:48)
[2019-12-17] MEDS: METOPROLOL TARTRATE 25 MG TAB PO SCH ×2 (08:48→20:06)
[2019-12-17] MEDS: DOXYCYCLINE HYCLATE 100 MG TABLET PO SCH ×2 (08:49→20:05)
[2019-12-17] MEDS: ENOXAPARIN SODIUM 80 MG/0.8 ML SQ SCH ×2 (08:50→20:06)
[2019-12-17] MEDS: ZINC SULFATE 220 CAPSULE PO SCH (11:59)
[2019-12-17 12:00] VITALS: BP 150/83
[2019-12-17 15:30] VITALS: BP 171/89
[2019-12-17 21:37] VITALS: BP 147/68
[2019-12-18 01:53] VITALS: BP 155/72
[2019-12-18] MEDS: INSULIN HUMULIN R 100 UNIT/ML 3ML SQ SCH ×4 (05:38→20:29)
[2019-12-18] MEDS: INSULIN GLARGINE 100 UNITS/ML 10 ML VIAL SQ SCH ×2 (05:38→20:28)
[2019-12-18 06:24] VITALS: BP 156/76
[2019-12-18 06:33] LABS: CREATININE 1.1 mg/dL (0.5-1.5); POTASSIUM 3.3 mmol/L (3.5-5.1)
[2019-12-18] MEDS: CEFEPIME HCL 2 GM VIAL IVP SCH ×2 (07:49→18:59)
[2019-12-18] MEDS: DOXYCYCLINE HYCLATE 100 MG TABLET PO SCH ×2 (07:50→20:17)
[2019-12-18] MEDS: METHYLPREDNISOLONE SOD SUCC 125MG/2ML VIAL IVP SCH ×3 (07:50→16:35)
[2019-12-18] MEDS: ASPIRIN 81MG TAB.CHEW PO SCH (07:50)
[2019-12-18] MEDS: METOPROLOL TARTRATE 25 MG TAB PO SCH ×2 (07:51→20:17)
[2019-12-18] MEDS: ASCORBIC ACID 500 MG TAB PO SCH (07:51)
[2019-12-18] MEDS: FAMOTIDINE 20MG TAB 20 MG TAB PO SCH ×2 (07:51→20:17)
[2019-12-18] MEDS: ENOXAPARIN SODIUM 80 MG/0.8 ML SQ SCH (07:52)
[2019-12-18 08:00] VITALS: BP 152/89
[2019-12-18 11:00] VITALS: BP 137/88
[2019-12-18] MEDS: ZINC SULFATE 220 CAPSULE PO SCH (12:31)
--- NOTE | 2019-12-18 13:25 | NUR ---
RD FOLLOW UP Pt continues with Clear Liquid diet order X 11 days. No report of GI distress. Poor PO. WBC 11.9, BG 289, K 3.3. LBM 12/16. Vitamin C, Zinc supplementation in place. Recommend advance to Full Liquid diet order with Glucerna Nutrition supplement Recommend 60mL ProMod protein supplementation BID RD to continue to monitor. Please notify RD as additional nutrition concerns arise. Thank you.
[2019-12-18 15:28] VITALS: BP 144/76
[2019-12-18] MEDS: METHYLPREDNISOLONE SOD SUCC 40MG/ML 1ML IVP SCH (20:17)
[2019-12-18 21:09] VITALS: BP 144/85
[2019-12-19 00:31] VITALS: BP 144/79
[2019-12-19] MEDS: INSULIN HUMULIN R 100 UNIT/ML 3ML SQ SCH ×4 (05:34→21:00)
[2019-12-19] MEDS: INSULIN GLARGINE 100 UNITS/ML 10 ML VIAL SQ SCH ×2 (05:35→21:00)
[2019-12-19 05:38] LABS: BASOPHILS % (AUTO) 0.5 % (0.0-5.0); HEMATOCRIT 36.8 % (42-54); LYMPHOCYTES % (AUTO) 2.7 % (21.0-51.0); MEAN CORPUSCULAR HEMOGLOBIN 30.9 pg (27.0-33.0); MEAN CORPUSCULAR HGB CONC 33.2 g/dL (32.0-36.0); MEAN CORPUSCULAR VOLUME 93.2 fL (79-99); MONOCYTES % (AUTO) 4.8 % (3.0-13.0); NEUTROPHILS % (AUTO) 85.9 % (40.0-77.0); NUCLEATED RED BLOOD CELLS 0.4 % (0.0-0.19); PLATELET COUNT (AUTO) 288 K/uL (130-400); RED BLOOD CELL COUNT(AUTO) 3.95 MIL/uL (4.50-6.20); WHITE BLOOD COUNT (AUTO) 15.2 K/uL (4.8-10.8)
[2019-12-19 06:15] VITALS: BP 160/78
[2019-12-19 06:20] LABS: CREATININE 1.2 mg/dL (0.5-1.5); CRP QUANTITATIVE 24.5 mg/L (0.00-9.0); POTASSIUM 3.4 mmol/L (3.5-5.1)
[2019-12-19 08:30] VITALS: BP 160/74
[2019-12-19] MEDS: CEFEPIME HCL 2 GM VIAL IVP SCH ×2 (09:27→19:45)
[2019-12-19] MEDS: ASPIRIN 81MG TAB.CHEW PO SCH (09:27)
[2019-12-19] MEDS: FAMOTIDINE 20MG TAB 20 MG TAB PO SCH ×2 (09:27→21:00)
[2019-12-19] MEDS: ASCORBIC ACID 500 MG TAB PO SCH (09:27)
[2019-12-19] MEDS: METHYLPREDNISOLONE SOD SUCC 40MG/ML 1ML IVP SCH ×2 (09:27→21:00)
[2019-12-19] MEDS: ENOXAPARIN SODIUM 80 MG/0.8 ML SQ SCH (09:28)
[2019-12-19] MEDS: METOPROLOL TARTRATE 25 MG TAB PO SCH ×2 (09:28→21:00)
[2019-12-19] MEDS: DOXYCYCLINE HYCLATE 100 MG TABLET PO SCH ×2 (09:28→21:00)
[2019-12-19 11:00] VITALS: BP 162/79
[2019-12-19] MEDS: ZINC SULFATE 220 CAPSULE PO SCH (12:00)
--- NOTE | 2019-12-19 13:57 | NUR ---
DYSPHAGIA EVAL COMPLETED. +S/S OF ASPIRATION WITH THIN LIQUIDS. RECOMMEND FULL LIQUID DIET, NECTAR-THICK LIQUIDS. ASSEMBLY ROOM SUPERVISOR COORDINATED CARE WITH NURSE SIGIFREDO. SIGN PLACED ON THE DOOR WITH DIET RECOMMENDATIONS AND COMPENSATORY STRATEGIES. ALL QUESTIONS ANSWERED AT THE TIME OF THE EVALUATION. Addendum: 12/19/19 at 1400 by TERRY BEYER, [facility] Amended: Links added.
[2019-12-19 16:00] VITALS: BP 158/82
[2019-12-19 20:12] VITALS: BP 167/84
[2019-12-20 00:12] VITALS: BP 149/87
[2019-12-20 04:12] VITALS: BP 145/83
[2019-12-20] MEDS: INSULIN HUMULIN R 100 UNIT/ML 3ML SQ SCH ×4 (05:59→21:39)
[2019-12-20] MEDS: INSULIN GLARGINE 100 UNITS/ML 10 ML VIAL SQ SCH ×2 (06:00→21:39)
[2019-12-20 07:51] LABS: BASOPHILS % (AUTO) 0.6 % (0.0-5.0); HEMATOCRIT 38.3 % (42-54); LYMPHOCYTES % (AUTO) 2.3 % (21.0-51.0); MEAN CORPUSCULAR HEMOGLOBIN 30.5 pg (27.0-33.0); MEAN CORPUSCULAR HGB CONC 32.4 g/dL (32.0-36.0); MEAN CORPUSCULAR VOLUME 94.3 fL (79-99); MONOCYTES % (AUTO) 2.9 % (3.0-13.0); NEUTROPHILS % (AUTO) 89.5 % (40.0-77.0); NUCLEATED RED BLOOD CELLS 0.2 % (0.0-0.19); PLATELET COUNT (AUTO) 285 K/uL (130-400); RED BLOOD CELL COUNT(AUTO) 4.06 MIL/uL (4.50-6.20); RED CELL DISTRIBUTION WIDTH 13.2 % (11.0-15.5); WHITE BLOOD COUNT (AUTO) 19.6 K/uL (4.8-10.8)
[2019-12-20 08:00] VITALS: BP 137/78
[2019-12-20 08:33] LABS: CARBON DIOXIDE 32 mmol/L (21-32); CHLORIDE 111 mmol/L (101-111); CREATININE 0.9 mg/dL (0.5-1.5); GLOMERULAR FILTR. RATE CALC 89 mL/min (>60); GLUCOSE,RANDOM 132 mg/dL (70-105); POTASSIUM 3.6 mmol/L (3.5-5.1); SODIUM SERUM 147 mmol/L (136-145); UREA NITROGEN, BLOOD 52 mg/dL (7-18)
[2019-12-20] MEDS: FAMOTIDINE 20MG TAB 20 MG TAB PO SCH ×2 (09:08→21:14)
[2019-12-20] MEDS: ASCORBIC ACID 500 MG TAB PO SCH (09:08)
[2019-12-20] MEDS: METOPROLOL TARTRATE 25 MG TAB PO SCH ×2 (09:09→21:12)
[2019-12-20] MEDS: DOXYCYCLINE HYCLATE 100 MG TABLET PO SCH ×2 (09:09→21:12)
[2019-12-20] MEDS: ASPIRIN 81MG TAB.CHEW PO SCH (09:09)
[2019-12-20] MEDS: METHYLPREDNISOLONE SOD SUCC 40MG/ML 1ML IVP SCH ×2 (09:11→21:12)
[2019-12-20] MEDS: CEFEPIME HCL 2 GM VIAL IVP SCH ×2 (09:11→21:12)
[2019-12-20] MEDS: ENOXAPARIN SODIUM 80 MG/0.8 ML SQ SCH (09:12)
[2019-12-20 10:12] LABS: LACTATE DEHYDROGENASE 673 U/L (81-234)
[2019-12-20 12:00] VITALS: BP 152/76
[2019-12-20] MEDS: ZINC SULFATE 220 CAPSULE PO SCH (12:30)
[2019-12-20 16:00] VITALS: BP 164/86
[2019-12-20 20:12] VITALS: BP 160/87
[2019-12-21 00:12] VITALS: BP 162/83
[2019-12-21 04:12] VITALS: BP 148/80
[2019-12-21] MEDS: INSULIN HUMULIN R 100 UNIT/ML 3ML SQ SCH ×4 (06:11→21:30)
[2019-12-21] MEDS: INSULIN GLARGINE 100 UNITS/ML 10 ML VIAL SQ SCH ×2 (06:13→21:30)
[2019-12-21 07:56] LABS: BASOPHILS % (AUTO) 0.5 % (0.0-5.0); HEMATOCRIT 39.7 % (42-54); LYMPHOCYTES % (AUTO) 2.9 % (21.0-51.0); MEAN CORPUSCULAR HEMOGLOBIN 30.6 pg (27.0-33.0); MEAN CORPUSCULAR HGB CONC 32.2 g/dL (32.0-36.0); MONOCYTES % (AUTO) 2.9 % (3.0-13.0); NEUTROPHILS % (AUTO) 89.2 % (40.0-77.0); NUCLEATED RED BLOOD CELLS 0.1 % (0.0-0.19); PLATELET COUNT (AUTO) 251 K/uL (130-400); RED BLOOD CELL COUNT(AUTO) 4.18 MIL/uL (4.50-6.20); RED CELL DISTRIBUTION WIDTH 13.5 % (11.0-15.5); WHITE BLOOD COUNT (AUTO) 23.4 K/uL (4.8-10.8)
[2019-12-21 08:00] VITALS: BP 148/93
[2019-12-21 08:17] LABS: CARBON DIOXIDE 31 mmol/L (21-32); CHLORIDE 110 mmol/L (101-111); CREATININE 1.1 mg/dL (0.5-1.5); GLOMERULAR FILTR. RATE CALC 71 mL/min (>60); GLUCOSE,RANDOM 193 mg/dL (70-105); LACTATE DEHYDROGENASE 582 U/L (81-234); POTASSIUM 3.6 mmol/L (3.5-5.1); SODIUM SERUM 147 mmol/L (136-145); UREA NITROGEN, BLOOD 59 mg/dL (7-18)
[2019-12-21] MEDS: ZINC SULFATE 220 CAPSULE PO SCH (10:45)
[2019-12-21] MEDS: DOXYCYCLINE HYCLATE 100 MG TABLET PO SCH ×2 (10:45→21:29)
[2019-12-21] MEDS: ASCORBIC ACID 500 MG TAB PO SCH (10:46)
[2019-12-21] MEDS: FAMOTIDINE 20MG TAB 20 MG TAB PO SCH ×2 (10:48→21:29)
[2019-12-21] MEDS: ASPIRIN 81MG TAB.CHEW PO SCH (10:49)
[2019-12-21] MEDS: METHYLPREDNISOLONE SOD SUCC 40MG/ML 1ML IVP SCH ×2 (10:49→21:29)
[2019-12-21] MEDS: ENOXAPARIN SODIUM 80 MG/0.8 ML SQ SCH (10:51)
[2019-12-21] MEDS: METOPROLOL TARTRATE 25 MG TAB PO SCH ×2 (10:52→21:29)
[2019-12-21] MEDS: CEFEPIME HCL 2 GM VIAL IVP SCH ×2 (11:04→21:29)
[2019-12-21 12:00] VITALS: BP 170/101
[2019-12-21 15:47] LABS: ABG BASE EXCESS 2.2 mmol/L (-2.0-3.0); ABG OXYGEN SATURATION 94.7 % (95.0-99.0); ABG PCO2 38 mmHg (35-48)
[2019-12-21 16:00] VITALS: BP 158/90
[2019-12-21] MEDS ORDERED: MORPHINE SULFATE 2 MG/ML 1ML SYG IM PRN (18:30)
[2019-12-21] MEDS ORDERED: NITROGLYCERIN 0.4 MG SL TAB SL PRN ×2 (18:30→22:00)
[2019-12-21 19:00] VITALS: BP 152/94
[2019-12-21] MEDS ORDERED: MORPHINE SULFATE 2 MG/ML 1ML SYG IVP ONE ×2 (19:15→20:20)
--- NOTE | 2019-12-21 19:16 | NUR ---
Patient complaining of chest pain. Dr. Black notified and ordered STAT cardiac labs, EKG, nitrox3 and morphine if needed. One dose of Nitro SL and morphine 2mg given. Patient alert and does not appear to be in any distress. Oncoming RN notified of patient status. Will continue to monitor for any changes.
[2019-12-21 19:43] LABS: TROPONIN I 0.14 ng/mL (0.00-0.06)
--- NOTE | 2019-12-21 22:46 | NUR ---
Memo [facility]es De Oca was consulted at 2200 concerning the patient's status about elevated troponin & chest pain (prior to my shift). He is aware of the EKG result and elevated trop of 0.14. I was told to order cycle trop. with PRN morphine 2mg Q1hr & SL Nitro for pain control. I was only instructed to notify the MD if he becomes unstable. Dr. Gerardo will f/u with the patient first thing in the morning.
[2019-12-22] VITALS (7 sets, daily range): BP systolic 109–164; BP diastolic 64–102
[2019-12-22] MEDS: MORPHINE SULFATE 2 MG/ML 1ML SYG IVP PRN ×4 (02:50→16:01)
--- NOTE | 2019-12-22 02:50 | NUR ---
Patient complained of Chest Pain 03/13. Stat EKG done which was the same as the previous EKG that was taken at 7pm at the beginning of the shift in which the MD is already aware. Trop are currently trending (next one at 4am). Patient BP was 164/97 HR 101 & morphine was given for pain. He is stable right now & being closely monitored.
[2019-12-22 05:48] LABS: CARBON DIOXIDE 33 mmol/L (21-32); CHLORIDE 114 mmol/L (101-111); CREATININE 1.2 mg/dL (0.5-1.5); GLOMERULAR FILTR. RATE CALC 64 mL/min (>60); GLUCOSE,RANDOM 223 mg/dL (70-105); LACTATE DEHYDROGENASE 589 U/L (81-234); POTASSIUM 4.3 mmol/L (3.5-5.1); SODIUM SERUM 153 mmol/L (136-145); UREA NITROGEN, BLOOD 71 mg/dL (7-18)
[2019-12-22] MEDS: INSULIN HUMULIN R 100 UNIT/ML 3ML SQ SCH ×4 (06:27→20:46)
[2019-12-22] MEDS: INSULIN GLARGINE 100 UNITS/ML 10 ML VIAL SQ SCH ×2 (07:30→20:46)
[2019-12-22] MEDS: DEXTROSE 5%-WATER 1,000 ML IV SCH ×2 (08:30→19:48)
[2019-12-22] MEDS: ASPIRIN 81MG TAB.CHEW PO SCH (09:23)
[2019-12-22] MEDS: DOXYCYCLINE HYCLATE 100 MG TABLET PO SCH ×2 (09:23→19:47)
[2019-12-22] MEDS: ASCORBIC ACID 500 MG TAB PO SCH (09:23)
[2019-12-22] MEDS: METHYLPREDNISOLONE SOD SUCC 40MG/ML 1ML IVP SCH ×2 (09:23→21:21)
[2019-12-22] MEDS: FAMOTIDINE 20MG TAB 20 MG TAB PO SCH ×2 (09:24→19:48)
[2019-12-22] MEDS: ENOXAPARIN SODIUM 80 MG/0.8 ML SQ SCH (09:24)
[2019-12-22] MEDS: CEFEPIME HCL 2 GM VIAL IVP SCH ×2 (09:24→21:21)
[2019-12-22] MEDS: ZINC SULFATE 220 CAPSULE PO SCH (09:25)
[2019-12-22] MEDS: METOPROLOL TARTRATE 25 MG TAB PO SCH ×2 (09:35→19:48)
[2019-12-22] MEDS ORDERED: NITROGLYCERIN 0.2 MG/HR PATCH TD SCH (10:15)
[2019-12-22] MEDS: 1/2 NORMAL SALINE 1,000 ML IV SCH ×2 (13:15→19:48)
--- NOTE | 2019-12-22 14:38 | NUR ---
DYSPHAGIA RE-EVAL COMPLETED. +S/S OF ASPIRATION. RECOMMEND NPO, LONG-TERM ALTERNATE MEANS OF NUTRITION/HYDRATION. LONG-TERM ALTERNATE MEANS OF NUTRITION/HYDRATION RECOMMENDED SECONDARY TO HIGH RISK FOR ASPIRATION AND Pt WITH DESATURATION DURING EVALUATION. NG TUBE MAY OBSTRUCT NOSTRIL AND CONTRIBUTE TO CONTINUED O2 DESATURATION. STATE GAME PROTECTOR COORDINATED WITH NURSE ALEX. Addendum: 12/22/19 at 1445 by TERRY BEYER [facility] Amended: Links added.
[2019-12-22] MEDS ORDERED: IOHEXOL-350 75 ML VIAL IV ONE (14:55)
[2019-12-22 17:27] LABS: ABG BASE EXCESS -2.3 mmol/L (-2.0-3.0); ABG HCO3 23.8 mmol/L (21.0-28.0); ABG OXYGEN SATURATION 87.6 % (95.0-99.0); ABG PCO2 46 mmHg (35-48)
--- NOTE | 2019-12-22 18:12 | NUR ---
Pt placed on BIPAP machine after presenting symptoms of respiratory distress. Episode occurred after patient returned to room from CT (eval for possible PE. Dr. Black at bedside during rapid response. Family notified of change of condition.
--- NOTE | 2019-12-22 18:24 | NUR ---
DNR/DNI Code status discussed with family. Form completed by and weigh and charge worker, Savana. Family verbalized understanding.
[2019-12-22] MEDS ORDERED: METOPROLOL TARTRATE 1 MG/ML 5ML VIAL IV ONE (23:06)
[2019-12-22] MEDS ORDERED: METOPROLOL TARTRATE 1 MG/ML 5ML VIAL IV PRN (23:15)
[2019-12-23 00:14] VITALS: BP 115/75
--- NOTE | 2019-12-23 00:58 | NUR ---
MD CALLED The hospitalist was called and made aware of the patient compromised swallowing mechanisms & the PO meds still ordered for tonight. I was informed to chart against the meds due to the patient being NPO & make the PO doxycycline IV. Also, the vmware systems administrator was called because the pts HR is sustaining in the 150s-160s at rest. He ordered lopressor Q4hr PRN with parameters.
--- NOTE | 2019-12-23 01:06 | NUR ---
Family Member Visit The patient's arrived to the floor at the beginning of the shift to visit her . The house worker general was made aware of the situation & said that it was ok for the family member to stay with no time limitation. She was approved by the executive board.
[2019-12-23] MEDS: MORPHINE SULFATE 2 MG/ML 1ML SYG IVP PRN ×3 (03:32→11:16)
[2019-12-23 03:51] VITALS: BP 107/74
[2019-12-23] MEDS: INSULIN HUMULIN R 100 UNIT/ML 3ML SQ SCH ×6 (05:49→21:00)
[2019-12-23] MEDS: INSULIN GLARGINE 100 UNITS/ML 10 ML VIAL SQ SCH ×2 (05:50→21:00)
[2019-12-23 06:06] LABS: BASOPHILS % (AUTO) 0.3 % (0.0-5.0); HEMATOCRIT 37.6 % (42-54); LYMPHOCYTES % (AUTO) 2.3 % (21.0-51.0); MEAN CORPUSCULAR HEMOGLOBIN 31.4 pg (27.0-33.0); MEAN CORPUSCULAR HGB CONC 32.2 g/dL (32.0-36.0); MEAN CORPUSCULAR VOLUME 97.7 fL (79-99); MONOCYTES % (AUTO) 1.9 % (3.0-13.0); NEUTROPHILS % (AUTO) 93.5 % (40.0-77.0); NUCLEATED RED BLOOD CELLS 0.3 % (0.0-0.19); PLATELET COUNT (AUTO) 165 K/uL (130-400); RED BLOOD CELL COUNT(AUTO) 3.85 MIL/uL (4.50-6.20); RED CELL DISTRIBUTION WIDTH 14.6 % (11.0-15.5); WHITE BLOOD COUNT (AUTO) 27.4 K/uL (4.8-10.8)
[2019-12-23 06:22] LABS: CREATININE 2.3 mg/dL (0.5-1.5); CRP QUANTITATIVE 61.8 mg/L (0.00-9.0); POTASSIUM 5.2 mmol/L (3.5-5.1)
[2019-12-23] MEDS: FAMOTIDINE 20MG TAB 20 MG TAB PO SCH ×2 (07:47→21:00)
[2019-12-23] MEDS: ASCORBIC ACID 500 MG TAB PO SCH (07:47)
[2019-12-23] MEDS: 1/2 NORMAL SALINE 1,000 ML IV SCH ×2 (07:48→09:29)
[2019-12-23] MEDS: ZINC SULFATE 220 CAPSULE PO SCH (07:48)
[2019-12-23] MEDS: METOPROLOL TARTRATE 25 MG TAB PO SCH ×2 (07:48→21:00)
[2019-12-23] MEDS: ASPIRIN 81MG TAB.CHEW PO SCH (07:48)
[2019-12-23 08:00] VITALS: BP 122/78
[2019-12-23] MEDS: DOXYCYCLINE 100MG+NS 250ML 250 ML IV SCH ×2 (09:00→21:04)
[2019-12-23] MEDS: METHYLPREDNISOLONE SOD SUCC 40MG/ML 1ML IVP SCH ×2 (09:40→21:04)
[2019-12-23] MEDS: CEFEPIME HCL 2 GM VIAL IVP SCH ×2 (09:40→21:04)
[2019-12-23] MEDS: ENOXAPARIN SODIUM 80 MG/0.8 ML SQ SCH (09:40)
[2019-12-23 11:00] VITALS: BP 139/88
--- NOTE | 2019-12-23 11:20 | NUR ---
Referral to SS for Pallative/Hospice Care SW spoke with spouse on telephone. Spouse requesting assistance with obtaining Immigration letter for family to cross border. Spouse informed that process is Customs to contact dry house worker for verification of patient/condition. Spouse provided with House Superv tel #. SW spoke with spouse about hospice and educated on philosophy and services. Spouse stated that she did not want to discuss hospice at this time. SW will continue to follow and provide assistance with hospice if receptive.
[2019-12-23] MEDS ORDERED: HYDROMORPHONE HCL 2 MG/ML VIAL IVP PRN (11:30)
[2019-12-23] MEDS ORDERED: HYDROMORPHONE HCL 0.5 MG/0.5 ML ML ONE (11:31)
[2019-12-23] MEDS ORDERED: FUROSEMIDE 10 MG/ML 4ML VIAL IV SCH (12:00)
--- NOTE | 2019-12-23 15:02 | NUR ---
FOLLOW UP COMPLETED. Pt CURRENTLY ON BIPAP AND NPO. PLEASE NOTE Pt IS AT HIGH RISK FOR ASPIRATION. NO TREATMENT PROVIDED AT THIS TIME. [employer] [facility] [facility] [employer] WILL CONTINUE TO FOLLOW Pt. Addendum: 12/23/19 at 1504 by TERRY BEYER, [facility] Amended: Links added.
[2019-12-23] MEDS: DEXTROSE 5%-WATER 1,000 ML IV SCH (15:18)
[2019-12-23 15:30] VITALS: BP 109/75
--- NOTE | 2019-12-23 19:25 | NUR ---
NG tube placed on left nare (at 65cm) Patient tolerated well. director of individual giving assisted with placement. Surgical Aide consult placed for possible tube feeds.
[2019-12-23 20:00] VITALS: BP 123/72
[2019-12-24] MEDS ORDERED: VANCOMYCIN PROTOCOL PER PHARMACY IV SCH
--- NOTE | 2019-12-24 01:46 | NUR ---
Patient At the beginning of the shift, the patient Vitals were stable. He was no longer responding however. At 23:49 the sterilization technician informed the staff that the patient HR carter then went into V.Fib. At 23:50 the patient was reading asystole. The family was called immediately concerning the patient's status. The Kaye Cazares arrived a couple of minutes later to visit her & all her questions were answered.
== END 2019-12-23 23:57 | disposition expired | DRG 871 ==
LOC: EDH 17:48 → EDHIP 19:58 → 4CH 12-09 22:34
PROVIDERS: ADMIT Internal Medicine; ATTEND Internal Medicine
PROC: 30233K1 Transfusion of Nonautologous Frozen Plasma into Peripheral Vein, Percutaneous Approach (ICD-10-PCS; principal; 2019-12-15)
PROC: 5A09357 Assistance with Respiratory Ventilation, Less than 24 Consecutive Hours, Continuous Positive Airway Pressure (ICD-10-PCS; 2019-12-22)
DX: A41.89 Other specified sepsis (principal); U07.1 COVID-19; J96.01 Acute respiratory failure with hypoxia; I21.4 Non-ST elevation (NSTEMI) myocardial infarction; J12.89 Other viral pneumonia; I50.31 Acute diastolic (congestive) heart failure; E87.1 Hypo-osmolality and hyponatremia; M62.82 Rhabdomyolysis; N17.9 Acute kidney failure, unspecified; E87.0 Hyperosmolality and hypernatremia; E87.3 Alkalosis; G93.40 Encephalopathy, unspecified; I13.0 Hypertensive heart and chronic kidney disease with heart failure and stage 1 through stage 4 chronic kidney disease, or unspecified chronic kidney disease; E11.22 Type 2 diabetes mellitus with diabetic chronic kidney disease; E66.9 Obesity, unspecified; Z68.28 Body mass index [BMI] 28.0-28.9, adult; E87.8 Other disorders of electrolyte and fluid balance, not elsewhere classified; I25.10 Atherosclerotic heart disease of native coronary artery without angina pectoris; J39.8 Other specified diseases of upper respiratory tract; N18.9 Chronic kidney disease, unspecified; R47.02 Dysphasia; Z66 Do not resuscitate; Z74.01 Bed confinement status; Z86.19 Personal history of other infectious and parasitic diseases; R53.81 Other malaise
CPT/HCPCS: 0099U; 36415; 36430; 36600; 70450; 71045; 71275; 80048; 80053; 81001; 82180; 82435; 82550; 82728; 82803; 82947; 82948; 83605; 83615; 83735; 83874; 83880; 84132; 84145; 84295; 84443; 84484; 85018; 85025; 85378; 85610; 85730; 86140; 86850; 86900; 86901; 86927; 87040; 87088; 92610; 93005; 93306; 93356; 94660; 99291; G0378; J0456; J0692; J0696; J1170; J1610; J1650; J1815; J1940; J2405; J2920; J2930; J3480; J3490; J7050; J7070; P9017; Q9967; U0003